=== PATIENT | female | born 1945 | race Hispanic/Latino ===

== ENCOUNTER 2025-01-31 11:07 | Day surgery (SDC) | payer OTHER, MEDICAID ==
[2025-01-29 11:51] LABS: IMMATURE GRANULOCYTE ABSOLUTE 0.03 K/uL (0-1); NUCLEATED RED BLOOD CELLS 0.0 % (0.0-0.19); PLATELET COUNT (AUTO) 365 K/uL (130-400); RED BLOOD CELL COUNT(AUTO) 3.70 MIL/uL (4.00-5.50); RED CELL DISTRIBUTION WIDTH 12.7 % (11.0-15.5); WHITE BLOOD COUNT (AUTO) 7.8 K/uL (4.8-10.8)
[2025-01-29 11:56] LABS: CREATININE 1.3 mg/dL (0.5-1.0); GLOMERULAR FILTR. RATE CALC 42.0 mL/min (>90); GLUCOSE,RANDOM 86.0 mg/dL (70-105); SODIUM SERUM 144.0 mmol/L (136-145); UREA NITROGEN, BLOOD 37.0 mg/dL (7-18)
[2025-01-29 12:00] LABS: INR 1.04 (0.85-1.15)
[2025-01-29 12:06] VITALS: BP 157/70; PULSE 67; RESP 13; TEMP 97.3
--- NOTE | 2025-01-29 14:05 | EKG ---
[facility] Test Date: 2025-01-29 Test Time: 11:35:39 Pat Name: KITTY JOYA Department: [facility] Room: Gender: F [employer]or: [id number] : 1945 Requested By: HEATHER MARTINEZ Order Number: [id number] Reading MD: Nicole Lyon Measurements Intervals [place] Rate: 64 P: 56 [place]: 167 QRS: 18 QRSD: 90 T: 39 QT: 433 QTc: 448 Interpretive Statements Sinus rhythm No previous ECG available for comparison Electronically Signed On 01-29-2025 15:55:02 CDT by Nicole Lyon Please click the below link to view image of tracing.
[~2025-01-31] VITALS: Ht 157.5 cm; Wt 90.3 kg
[2025-01-31] VITALS (14 sets, daily range): BP systolic 143–162; BP diastolic 66–83; PULSE 62–69; RESP 15–18; TEMP 97.6–97.9
[~2025-01-31 11:07] MED LIST: ALBU18HF7 IH; CHLO50TA PO; CHOL100040 PO; CYCL5TAB3 PO; DULO30CA52 PO; FENO134C21 PO; FISH OIL PO; FLUT1BLS3 IH; FOLI0.8T22 PO; LEVO88CA5 PO; LOSA100T59 PO; METO-391 PO; PRED5TAB PO; ROSU10TA72 PO
[2025-01-31] MEDS: LACTATED RINGERS 1000ML 1,000 ML IV ONE (12:05)
[2025-01-31] MEDS ORDERED: LIDOCAINE PF 100MG/5ML (2%) SYRINGE 5ML ONE (17:59)
[2025-01-31] MEDS ORDERED: NEOSTIGMINE METHYLSULFATE 1MG/ML IV ONE (18:00)
[2025-01-31] MEDS ORDERED: GLYCOPYRROLATE 0.2 MG/ML 5 ML VIAL ONE (18:00)
[2025-01-31] MEDS ORDERED: SUCCINYLCHOLINE CHLORIDE 20 MG/ML 10 ML VIAL ONE (18:00)
[2025-01-31] MEDS ORDERED: MIDAZOLAM HCL 1 MG/ML 2ML VIAL ONE (18:26)
[2025-01-31] MEDS: LIDOCAINE 1%-EPI 1:100,000 20 ML VIAL IJ ONE (18:55)
[2025-01-31] MEDS ORDERED: LIDOCAINE 1%-EPI 1:100,000 20 ML VIAL ONE (19:10)
[2025-01-31] MEDS ORDERED: SUGAMMADEX SODIUM 200 MG/2 ML VIAL IV ONE (19:52)
--- NOTE | 2025-01-31 20:44 | OP ---
Operative Note: DATE OF PROCEDURE: 01/31/25 SURGEON: HEATHER MARTINEZ DO PROCUREMENT PROFESSIONAL LOGISTICS: None ANESTHESIA: General ANESTHESIOLOGIST/SCRAP BALER: ES Gandhi PREOPERATIVE DIAGNOSIS: Umbilical hernia POSTOPERATIVE DIAGNOSIS: Umbilical hernia SYNOPSIS: None PROCEDURE: Robotic assisted laparoscopic umbilical hernia repair with mesh ESTIMATED BLOOD LOSS: 15 cc INDICATIONS: This is a 79-year-old female that presented to the clinic with painful umbilical swelling. Patient has had this for at least three years. She denies signs and symptoms of obstruction. On physical exam patient had a reducible umbilical hernia. I recommended robotic assisted laparoscopic umbilical hernia repair with mesh. I discussed the procedure in detail with the patient and her family. All questions were answered. All expressed understanding and agreement with plan. DESCRIPTION OF PROCEDURE: The patient was placed in the operating table in the supine position. After adequate sedation the patient was intubated by anesthesia. Perioperative antibiotics were given. The patient's abdomen was prepped and draped in the usual sterile fashion. A time-out was performed. A 1 cm skin incision was made in the left upper quadrant at manzanares's point. The peritoneal cavity was accessed using 5 mm Optiview technique. The abdomen was insufflated and the patient tolerated insufflation well. The laparoscopic camera was inserted and all four quadrants were evaluated and found to be grossly normal with the exception of a umbilical hernia with incarcerated omentum. Two 8 mm robotic ports were placed under direct visualization in the left flank and left lower quadrant. The 5 mm port was exchanged for an 8 mm robotic port under direct visualization. The patient was placed in slight right side down. The robot was docked. The omentum was reduced. The hernia was measured to be 2 cm. The peritoneal flap was created in the hernia sac was reduced. The midline defect was approximated using a running suture of 0 V lock absorbable. An [address] coated mesh was placed and secured to the fascia using interrupted sutures of 2-0 Vicryl at the cardinal points. The peritoneum was approximated using a running suture of 3-0 V lock absorbable. A small rent near the hernia sac was approximated using a [id number] suture of 2-0 Vicryl. The robot was undocked. The ports were removed under direct visualization and found to be hemostatic. The skin of all port sites were approximated using 4-0 Monocryl in a subcuticular fashion. The wounds were dressed with Dermabond. An abdominal binder was placed. The patient tolerated the procedure well. All instrument, needle, and sponge counts were correct at the end of the procedure. The patient was aroused from sedation, extubated, and transferred to the postanesthesia care unit in good condition. HEATHER MARTINEZ DO Jan 31, 2025 20:44
--- NOTE | 2025-01-31 21:24 | NUR ---
POST RECOVERY DRESSING IN PLACE TO ANTERIOR ABDOMEN. GAUZE OVER BELLY BUTTON WITH TEGADERM. BINDER IN PLACE OVER DRESSING. DRESSING SOFT TO TOUCH, NO ACTIVE BLEEDING OR DRAINAGE NOTED.
== END 2025-01-31 21:56 | disposition home or self-care (01) ==
LOC: DAH 11:07
PROVIDERS: ATTEND Student in an Organized Health Care Education/Training Program
DX: K42.0 Umbilical hernia with obstruction, without gangrene (principal); J44.9 Chronic obstructive pulmonary disease, unspecified; I10 Essential (primary) hypertension; E66.9 Obesity, unspecified; M19.90 Unspecified osteoarthritis, unspecified site; E78.00 Pure hypercholesterolemia, unspecified; E03.9 Hypothyroidism, unspecified; Z68.37 Body mass index [BMI] 37.0-37.9, adult; Z87.891 Personal history of nicotine dependence; Z79.01 Long term (current) use of anticoagulants; Z98.51 Tubal ligation status; Z79.899 Other long term (current) drug therapy
CPT/HCPCS: 80048; 85025; 85610; 85730; 86850; 86900; 86901; 36415; 93005; 49592; A6260; A4663; J7030; C1781; J7120; J3010; J3490 ×5; J1100; J0330; J2270; J0665 ×2; J2003; J2250; J2704; J2405; J2710; J0690 ×2; C1769; A4930 ×2; A4215; A4223; A4222; A4221; A4600

== ENCOUNTER → 2025-05-23 | Outpatient (CLI) | payer OTHER, MEDICAID ==
[2025-05-23 13:13] LABS: CREATININE 1.1 mg/dL (0.5-1.0); GLOMERULAR FILTR. RATE CALC 51.0 mL/min (>90); UREA NITROGEN, BLOOD 26.0 mg/dL (7-18)
== END | disposition home or self-care (01) ==
LOC: LAB 12:20
PROVIDERS: ATTEND Student in an Organized Health Care Education/Training Program
DX: R10.31 Right lower quadrant pain (principal)
CPT/HCPCS: 36415; 82565; 84520

== ENCOUNTER → 2025-05-28 | Outpatient (CLI) | payer OTHER, MEDICAID ==
[~2025-05-28] MED LIST changes: +IOHEXOL-350 75 ML VIAL IV ONE; -ROSU10TA72 PO; +ROSU10TA98 PO
--- NOTE | 2025-05-28 22:09 | HMCIMG ---
STUDY CT Abdomen and Pelvis with IV contrast HISTORY Right lower quadrant pain TECHNIQUE Axial contrast-enhanced CT images of the abdomen and pelvis were obtained. COMPARISON None provided. FINDINGS Lung bases Chronic lung changes at the bases with linear parenchymal bands and mild scarring; no focal consolidation, effusion, or suspicious nodule. Liver and biliary system Liver attenuation and contour are within normal limits. No suspicious focal hepatic lesion. Gallbladder is surgically absent. No intrahepatic or extrahepatic biliary ductal dilatation. Pancreas and spleen Pancreas is unremarkable. Spleen is normal in size and attenuation. Adrenal glands Adrenal glands are unremarkable. Kidneys, ureters, and bladder Multiple bilateral renal cortical cysts are present, largest measuring approximately 4.2 cm on the right, compatible with simple cysts. No hydronephrosis, hydroureter, or urinary calculi. Urinary bladder is unremarkable. Stomach and bowel Small sliding hiatal hernia measuring approximately 2.5 cm. Uncomplicated colonic diverticulosis without associated wall thickening, pericolic fat stranding, abscess, or perforation. Mild fecal impaction is present within the large bowel and rectum. No evidence of bowel obstruction, enteritis, or colitis. Appendix Appendix is visualized and normal in caliber without periappendiceal inflammation. Peritoneum and lymph nodes No free intraperitoneal air or fluid. No abdominopelvic lymphadenopathy. Reproductive organs Reproductive structures are unremarkable as visualized. Vasculature No abdominal aortic aneurysm. Major abdominopelvic vessels are patent. 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 No acute fracture or aggressive osseous lesion. IMPRESSION * Uncomplicated colonic diverticulosis with mild fecal impaction in the large bowel and rectum; normal appendix with no CT evidence of appendicitis. * Multiple bilateral simple renal cortical cysts, largest 4.2 cm on the right, without hydronephrosis or urinary calculi. 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 * Small 2.5 cm sliding hiatal hernia and chronic basilar lung changes, without acute intra-abdominal or pelvic abnormality to specifically explain right lower quadrant pain. /[place]
== END | disposition home or self-care (01) ==
LOC: RAH 09:40
PROVIDERS: ATTEND Student in an Organized Health Care Education/Training Program
DX: K57.30 Diverticulosis of large intestine without perforation or abscess without bleeding (principal); N28.1 Cyst of kidney, acquired; M43.17 Spondylolisthesis, lumbosacral region; M47.815 Spondylosis without myelopathy or radiculopathy, thoracolumbar region; K44.9 Diaphragmatic hernia without obstruction or gangrene; R10.31 Right lower quadrant pain; K56.41 Fecal impaction; M51.35 Other intervertebral disc degeneration, thoracolumbar region; Z90.49 Acquired absence of other specified parts of digestive tract
CPT/HCPCS: 74177; Q9967